=== PATIENT | female | born 1960 | race Caucasian/White ===

== ENCOUNTER 2017-05-05 06:52 | Emergency (ER) | payer BC ==
[~2017-05-05] VITALS: Ht 154.9 cm; Wt 47.9 kg
[~2017-05-05 06:52] MED LIST: CALTRATE 6001 TABLE2 PO; CHILDREN'S ASPI81 M1 PO; ENDOCET 5-3251 EACH PO; FISH OIL 500 M1 EAC3 PO; Feosol PO; IRON240 MG PO; MAG-OXIDE400 MG PO; Motrin PO; THERAGRAN1 TABLET PO; VITAMIN B-1001 EAC1 PO; VITAMIN D1000 INTUN PO
[2017-05-05 07:56] LABS: HEMATOCRIT 37.3 % (36.0-46.0); MCH 32.6 PG (29.0-34.0); MCV 95.9 FL (83-99); PLATELET COUNT 184 K/uL (156-360); RBC DIS.WIDTH-CV 12.8 % (11.8-14.6); RBC DIS.WIDTH-SD 45.1 % (39-53); RED BLOOD COUNT 3.89 M/uL (3.80-5.20); WHITE BLOOD COUNT 8.2 K/uL (4.1-10.2)
[2017-05-05 08:06] LABS: CHLORIDE 105 mEq/L (99-109); POTASSIUM 3.7 mEq/L (3.7-5.4); SODIUM 139 mEq/L (136-147)
[2017-05-05 08:08] LABS: GLUCOSE 141 mg/dL (70-99)
[2017-05-05 08:10] LABS: ANION GAP 8 MEQ/L (2-14)
[2017-05-05 08:12] LABS: GFR ESTIMATE (CALCULATED) > 59 mL/min/
[2017-05-05 08:13] LABS: UREA NITROGEN (BUN) 15 mg/dL (9-23)
[2017-05-05] MEDS ORDERED: MECLIZINE HCL25 MG PO (10:41)
[2017-05-05 10:49] VITALS: BP 129/80
== END 2017-05-05 10:50 | disposition home or self-care (01) ==
LOC: EME → EDBD 06:52 → EME 10:50
PROVIDERS: Physician Assistant
DX: H81.10 Benign paroxysmal vertigo, unspecified ear (principal); Z88.0 Allergy status to penicillin
CPT/HCPCS: 80048; 85027; 93005; 99281; 99285; J7030